=== PATIENT | male | born 1960 | race Caucasian/White ===

== ENCOUNTER 2025-07-13 08:55 | Outpatient (CLI) | payer MEDICARE, BC, SELFPAY ==
--- NOTE | 2025-07-13 09:15 | MR_ITS ---
[address] [address] Phone:?[phone] Fax:?[phone] Referring Physician Information: WEN Diaz [address] [facility] [address] Phone:?[phone] Fax:?[phone] Patient:?Venancio Santiago D.O.B:?1960 Sex:?Male Phone:?[phone] [facility] MRN:?[id number] Exam Date:?07/13/2025 EXAM: MRI EXAMINATION OF THE RIGHT HIP CLINICAL INFORMATION: The patient is a 64-year-old with right hip pain. Evaluate for gluteal injury. Evaluate for proximal hamstrings tear. PRIOR SURGERY: None reported. COMPARISON STUDIES: Comparison is made to prior radiographs dated 06/29/2025. TECHNICAL INFORMATION: Using a 1.5T MR scanner and a localizing surface coil: 4.0 mm?coronals: PD, T2 4.0 mm?sagittals: PD, T2 3.0 mm?oblique axials: PD 4.0 mm?straight axials: T2FS 4.0 mm?coronals: T1, STIR of pelvis and hips FINDINGS: Hip joint: The hip joint space is preserved. There is no effusion. Articular Cartilage: Chondromalacia and chondral thinning along the anteromedial articular surfaces of the hip can be seen in the region of the acetabular bony abnormalities discussed below. The findings are nonspecific but may relate to chronic posttraumatic or post stress changes of the right hip. Please see the description below. No other definite chondral injuries along the articular surfaces are seen. Specifically, the weightbearing surfaces are within normal limits. Labrum: Degeneration and irregularity of the right acetabular labrum can be seen without definite areas of well-defined tearing. There is no evidence for paralabral ganglion cyst formation. Proximal femur: The bone marrow signal of the proximal femoral head, femoral neck and intertrochanteric region is normal in appearance without evidence of structural abnormality or lesion of abnormal signal intensity. There is no evidence of avascular necrosis, fracture or stress injury. No definite cam lesions are identified. There are no fibrocystic osseous lesions. Acetabulum: No evidence for bony abnormality along the weightbearing surfaces of the right acetabulum can be seen, however there is an area of abnormal signal intensity involving the anterior column of the acetabulum, including the anteromedial articular surfaces, seen to best advantage on coronal series 12 image 12, coronal series 5 image 19, and on axial series 8 image 10. There is cortical irregularity with subcortical cystic change and the findings may relate to chronic posttraumatic or stress changes in this location. A neoplastic process in this location is felt to be less likely and no surrounding marrow edema or well-defined cortical disruption is identified. No other definite abnormalities of the right acetabulum can be seen. There is no definite retroversion or osseous over coverage. There are no definite abnormalities in acetabular morphology. The ligamentum teres is intact. Myotendinous Structures: There is a strain of the right obturator internus muscle, seen to best advantage on coronal series 2 image 13 and on axial series 8 image 14. No evidence for additional injury to the right adductor compartment can be seen. The right gluteal musculature and gluteal tendons are normal in appearance. No injuries to the right iliopsoas can be seen. Mild to moderate tendinosis of the right common hamstrings origin can be seen without evidence for rupture or retraction. There is signal change within the quadratus femoris, interposed between the ischial tuberosity and proximal femur, noted to best advantage on axial series 8 image 24 and on coronal series 2 image 19. The findings may relate to mild elements of ischiofemoral impingement. Bursae: There is no evidence of iliopsoas, greater trochanteric or ischial bursal inflammation. Pelvic soft tissues: The soft tissues of the pelvis appear otherwise preserved. There is no evidence of soft tissue mass or adenopathy. No acute intrapelvic abnormalities are seen. Pelvic osseous structures: No other definite bony abnormalities of the pelvis can be seen in addition to the chronic posttraumatic or post stress changes involving the anterior column of right acetabulum. Specifically, there is no evidence for additional bony injury to the superior or inferior pubic rami. The symphysis pubis appears intact. No bony abnormalities of the sacrum can be seen. The sacroiliac joints are within normal limits. No abnormalities of the iliac wings are noted. Lumbosacral junction: Degenerative disc disease can be seen involving the lumbosacral junction. CONCLUSION: 1. Nonspecific area of signal change involving the anterior column of the right acetabulum, involving the anteromedial articular surfaces of the acetabulum and right hip. The findings are nonspecific but may relate to chronic posttraumatic or stress changes in this location. No definite injuries along the weightbearing surfaces of the right hip are noted. 2. Tendinosis of the right common hamstrings origin with adjacent suspected changes of ischiofemoral impingement. 3. No evidence for injury to the right gluteal musculature can be seen. 4. Strain of the right obturator internus. No other abnormalities of the right adductor compartment can be seen. 5. Degeneration and irregularity of the right acetabular labrum without definite areas of well-defined tearing. 6. Degenerative disc disease involving the lumbosacral junction. [facility] Electronically signed on 07/14/2025 6:21:00 AM by Juan Gonzales M.D.
== END 2025-07-13 08:56 | disposition home or self-care (01) ==
PROVIDERS: PCP Surgery; Visit Provider Physician Assistant Surgical
DX: M25.551 Pain in right hip (principal); S76.319A Strain of muscle, fascia and tendon of the posterior muscle group at thigh level, unspecified thigh, initial encounter; M51.369 Other intervertebral disc degeneration, lumbar region without mention of lumbar back pain or lower extremity pain
CPT/HCPCS: 73721